=== PATIENT | male | born 1995 | race Caucasian/White ===

== ENCOUNTER 2022-06-06 00:20 | Observation (INO) ==
[2022-06-06] MEDS ORDERED: ONDANSETRON INJ 2 MG/ML 2 ML VIAL IV STA (00:36)
[2022-06-06] MEDS ORDERED: SODIUM CHLORIDE 0.9% 1000ML 1,000 ML IV SCH (00:45)
[2022-06-06 00:54] LABS: Basophils # (auto) 0.07 K/uL (0-0.2); Basophils % (auto) 0.3 %; Eosinophils # (auto) 0.03 K/uL (0-0.50); Eosinophils % (auto) 0.1 %; Hemoglobin 14.7 g/dl (14.0-18.0); Immature Granulocytes # (auto) 0.09 K/uL (0.00-0.02); Immature Granulocytes % (auto) 0.4 %; Lymphocytes # (auto) 2.22 K/uL (1.2-3.4); Lymphocytes % (auto) 10.8 %; Mean Corpuscular Hemoglobin 29.8 pg (25.0-34.0); Mean Platelet Volume 10.8 fL (9.4-12.4); Monocytes # (auto) 1.47 K/uL (0.24-0.82); Monocytes % (auto) 7.2 %; Neutrophils # (auto) 16.64 K/uL (1.4-6.5); Neutrophils % (auto) 81.2 %; Platelet Count 297 K/uL (130-400); RDW Coefficient of Variation 12.2 % (11.5-14.5); RDW Standard Deviation 37.3 fL (36.4-46.3); Red Blood Count 4.94 M/uL (4.63-6.08); White Blood Count 20.52 K/ul (4.8-10.8)
[2022-06-06 01:13] LABS: BUN Creatinine Ratio 17.6 (10-20); Creatinine Clr Calc Pharmacy 146.1 ml/min; Est GFR (African American) 145.5 ml/min; Est GFR (Non-African American) 125.5 ml/min; Potassium 3.7 mmol/L (3.5-5.1)
[2022-06-06] MEDS ORDERED: FAMOTIDINE 20MG IV PUSH 20 MG/5 ML SYR IV STA (01:16)
[2022-06-06] MEDS ORDERED: KETOROLAC TROMETHAMINE 15 MG/ML VIAL IV STA (01:17)
[2022-06-06 01:27] LABS: Albumin Globulin Ratio 1.6 (0.9-2); Albumin Level 4.5 gm/dl (3.4-5.0); Bilirubin,Total 0.9 mg/dl (0.2-1.0); Globulin 2.9 gm/dl (2.5-4.0); Total Protein 7.4 gm/dl (6.0-8.3)
[2022-06-06] MEDS ORDERED: SODIUM CHLORIDE 0.9% 1000ML 1,000 ML IV ONE (01:35)
--- NOTE | 2022-06-06 02:16 | Emergency Department Note ---
History of Present Illness General Chief complaint: Vomiting Stated complaint: VOMITING S/P MILE MARATHON Time Seen by Provider: 06/06/22 00:36 History of Present Illness Maximum Pain Intensity: 6 This 27-year-old male patient presents to the emergency department today for evaluation of body aches, weakness, nausea and vomiting. Patient states symptoms began this evening after drinking bourbon and beer. He did run a 26 mile marathon yesterday. He seemed to be doing okay, but this evening developed suddenly worsening pain, difficulty with his speech, intractable nausea and vomiting. He rates his pain a 6/10 and describes it as aching in all of his joints. He denies any specific abdominal pain. No chest pain or shortness of breath. No history of similar symptoms. This is his second marathon and he did not experience similar symptoms in the past. He feels that he is hydrating appropriately. Patient's family states he is very unsteady on his feet. Denies any trauma during the marathon. Home Medications Medication Instructions Recorded Confirmed Type No Known Home Medications 06/06/22 06/06/22 History Allergies Allergy/AdvReac Type Severity Reaction Status Date / Time No Known Allergies Allergy Mild Verified 06/06/22 01:15 Past Med/Surg History Medical History No pertinent past medical history Social History Smoking Status: Current some day smoker Hx Alcohol Use: No Hx Substance Use: No Beliefs That Will Affect Care: None Current Living Situation: Family Feels Safe at Home: Yes Review of Systems A total of 10 systems reviewed and were otherwise negative Physical Exam Vital Signs Vital Signs - 24 hr 06/06/22 00:29 06/06/22 01:04 06/06/22 01:31 Temperature 36.2 C L Temperature Source Temporal Artery Scan Pulse Rate 86 Pulse Rate [Right Finger] 88 Respiratory Rate 18 20 Blood Pressure 119/68 Blood Pressure [Right Arm] 128/72 Blood Pressure Mean 85 Blood Pressure Mean [Right Arm] 90 Pulse Oximetry 98 98 97 Oxygen Delivery Method Room Air Room Air Room Air Sepsis Recent Fever Within 48 Hours No Sepsis New/Unexplained Change in Mental Status No Sepsis Action Taken by Nursing No Action Required 06/06/22 02:45 Temperature Temperature Source Pulse Rate Pulse Rate [Right Finger] 100 H Respiratory Rate 20 Blood Pressure Blood Pressure [Right Arm] 112/63 Blood Pressure Mean Blood Pressure Mean [Right Arm] 79 Pulse Oximetry 98 Oxygen Delivery Method Sepsis Recent Fever Within 48 Hours Sepsis New/Unexplained Change in Mental Status Sepsis Action Taken by Nursing VITALS: Vitals are noted on the nurse's note and reviewed by myself. Vital signs stable. GENERAL: This is a 27-year-old white male, in no acute distress, nondiaphoretic, well-developed well-nourished. Patient is slow to respond, but appropriate. SKIN: The skin was without rashes, erythema, edema, or bruising. There is no tenting of the skin. Capillary refill less than 2 seconds. HEAD: Normocephalic atraumatic. EYES: Pupils equal round and reactive to light and accommodation. Conjunctivae without injection, sclerae without icterus. Extraocular movements intact. NOSE: Patent, turbinates without inflammation or discharge. No sinus tenderness. MOUTH: Mucous membranes moist. Tonsils are not enlarged. Pharynx without erythema or exudate. Uvula midline. Airway patent. Tongue does not deviate. NECK: Supple without nuchal rigidity. No lymphadenopathy. No thyromegaly. Cervical spine is nontender. No JVD. HEART: Regular rate and rhythm without murmurs gallops or rubs. LUNGS: Clear to auscultation bilaterally without wheezes, rales or rhonchi. No retractions or accessory muscle use. ABDOMEN: Positive bowel sounds x 4. Soft, nontender, without masses or organomegaly. Claire sign negative. No guarding or rebound tenderness. MUSCULOSKELETAL: No muscle atrophy, erythema, or edema noted. Full range of motion without joint tenderness in all extremities. No tenderness to palpation. Normal gait. Strength 5/5 throughout. NEURO: Patient was alert and oriented to person place and time. Normal sensation to light and sharp touch. Deep tendon reflexes 2+ throughout. No focal neurological deficits. Course Course The patient was seen and evaluated as above. An order was placed for continuous cardiac monitoring. The monitor shows a normal sinus rhythm at a rate of 96 bpm. IV access obtained, labs drawn. Patient hydrated with IV fluids, medicated with Toradol and Zofran. Labs reviewed by myself. Patient medicated with additional IV fluids. I discussed the findings with the patient at bedside. Recommended admission. The patient was agreeable. I discussed the case with my attending. I discussed case with the software developer manager. I discussed the case with Dr. Whatley, [facility] physician. He did agree to see and evaluate the patient for admission. Administered Medications Lactated Ringer's (Lr) 1,000 mls @ 200 mls/hr IV .Q5H ONE Stop: 06/06/22 07:48 Last Admin: 06/06/22 03:05 Dose: 200 mls/hr Documented By: CESAR Discontinued Medications Sodium Chloride (Nss 1000ml) 1,000 mls @ 999 mls/hr IV .Q1H1M NABILA Stop: 06/06/22 01:45 Last Infusion: 06/06/22 02:08 Dose: 0 mls/hr Documented By: Admin: 06/06/22 01:03 Dose: 999 mls/hr Documented By: CESAR Famotidine (Pepcid 20mg Iv Push) 20 mg in 5 mls @ 2.5 mls/min IV NOW STA Stop: 06/06/22 01:17 Last Admin: 06/06/22 01:19 Dose: Not Given Documented By: CESAR Sodium Chloride (Nss 1000ml) 1,000 mls @ 999 mls/hr IV .Q1H1M ONE Stop: 06/06/22 02:35 Last Infusion: 06/06/22 02:39 Dose: 0 mls/hr Documented By: Admin: 06/06/22 01:41 Dose: 999 mls/hr Documented By: CESAR Thiamine HCl 100 mg/ Syringe 10 mls @ 2 mls/min IV NOW ONE Stop: 06/06/22 03:04 Last Admin: 06/06/22 03:04 Dose: 2 mls/min Documented By: CESAR Ketorolac Tromethamine (Ketorolac Tromethamine 15 Mg/Ml Vial) 15 mg IV NOW STA Stop: 06/06/22 01:18 Last Admin: 06/06/22 01:31 Dose: 15 mg Documented By: CESAR Ondansetron HCl (Ondansetron Inj 2 Mg/Ml 2 Ml Vial) 4 mg IV NOW STA Stop: 06/06/22 00:37 Last Admin: 06/06/22 01:02 Dose: 4 mg Documented By: CESAR Medical Decision Making Differential Diagnosis Differential diagnosis includes rhabdomyolysis, metabolic abnormality, electrolyte abnormality, dehydration, alcohol abuse, cardiac abnormality, gastroenteritis, infection, among others Medical Records Attestation: I reviewed the patient's medical records. Home Medications Current Medication List: was personally reviewed by me Laboratory Data Attestation: I reviewed the patient's lab results. Leukocytosis of 20,000. No anemia or thrombocytopenia. ESR 9. Renal, hepatic function and electrolytes without significant abnormality. Total creatine kinase 2131. C-reactive protein elevated at 3.69. UA negative. All urine drug screen negative. Alcohol elevated at 260. Result diagrams: 06/06/22 00:25 06/06/22 00:25 Lab Results 06/06/22 06/06/22 06/06/22 Range/Units 00:25 00:25 00:25 WBC 20.52 H (4.8-10.8) K/ul RBC 4.94 (4.63-6.08) M/uL Hgb 14.7 (14.0-18.0) g/dl Hct 42.0 (40.1-51.0) % MCV 85.0 (80.0-100.0) fL MCH 29.8 (25.0-34.0) pg MCHC 35.0 (32.0-36.0) g/dL RDW Std Deviation 37.3 (36.4-46.3) fL RDW Coeff of Kasia 12.2 (11.5-14.5) % Plt Count 297 (130-400) K/uL MPV 10.8 (9.4-12.4) fL Immature Gran % (Auto) 0.4 % Neut % (Auto) 81.2 % Lymph % (Auto) 10.8 % [place] % (Auto) 7.2 % Eos % (Auto) 0.1 % Baso % (Auto) 0.3 % Neut # (Auto) 16.64 H (1.4-6.5) K/uL Lymph # (Auto) 2.22 (1.2-3.4) K/uL [place] # (Auto) 1.47 H (0.24-0.82) K/uL Eos # (Auto) 0.03 (0-0.50) K/uL Baso # (Auto) 0.07 (0-0.2) K/uL Immature Gran # (Auto) 0.09 H (0.00-0.02) K/uL ESR 9 (0-15) mm/hr Sodium 138 (136-145) mmol/L Potassium 3.7 (3.5-5.1) mmol/L Chloride 103 (98-107) mmol/L Carbon Dioxide 24 (21-32) mmol/L Anion Gap 11 (3-11) BUN 13 (6-23) mg/dl Creatinine 0.74 (0.6-1.4) mg/dl Est Cr Clr Drug Dosing 146.1 ml/min Est GFR ( Amer) 145.5 ml/min Est GFR (Non-Af Amer) 125.5 ml/min BUN/Creatinine Ratio 17.6 (10-20) Glucose 131 H (70-99(Fasting)) mg/dl Calcium 9.0 (8.5-10.1) mg/dl Total Bilirubin 0.9 (0.2-1.0) mg/dl AST 68 H (13-39) U/L ALT 30 (7-52) U/L Alkaline Phosphatase 72 (34-104) U/L Total Creatine Kinase 2131 H (30-223) U/L C-Reactive Protein (0-0.5) mg/dl Total Protein 7.4 (6.0-8.3) gm/dl Albumin 4.5 (3.4-5.0) gm/dl Globulin 2.9 (2.5-4.0) gm/dl Albumin/Globulin Ratio 1.6 (0.9-2) Lipase 9 L (11-82) U/L Urine Color Urine Appearance (Clear) Urine pH (4.5-7.5) Ur Specific [place] (1.000-1.030) Urine Protein (Negative) Urine Glucose (UA) (Negative) Urine Ketones (Negative) Urine Blood (Negative) Urine Nitrite (Negative) Urine Bilirubin (Negative) Urine Urobilinogen (Negative) Ur Leukocyte Esterase (Negative) Urine Opiates Screen (Neg) Ur Methadone, Qual (Neg) Urine Barbiturates (Neg) Ur Phencyclidine (PCP) (Neg) U Amphetamin/Meth Scrn (Neg) MDMA (Ecstasy) Screen (Neg) U Benzodiazepines Scrn (Neg) Ur Cocaine Metabolite (Neg) U Marijuana (THC) Screen (Neg) Ethyl Alcohol mg/dL (<10.0) mg/dl SARS-CoV-2, RNA, NAAT (NEGATIVE) 06/06/22 06/06/22 06/06/22 Range/Units 00:25 00:25 02:10 WBC (4.8-10.8) K/ul RBC (4.63-6.08) M/uL Hgb (14.0-18.0) g/dl Hct (40.1-51.0) % MCV (80.0-100.0) fL MCH (25.0-34.0) pg MCHC (32.0-36.0) g/dL RDW Std Deviation (36.4-46.3) fL RDW Coeff of Kasia (11.5-14.5) % Plt Count (130-400) K/uL MPV (9.4-12.4) fL Immature Gran % (Auto) % Neut % (Auto) % Lymph % (Auto) % [place] % (Auto) % Eos % (Auto) % Baso % (Auto) % Neut # (Auto) (1.4-6.5) K/uL Lymph # (Auto) (1.2-3.4) K/uL [place] # (Auto) (0.24-0.82) K/uL Eos # (Auto) (0-0.50) K/uL Baso # (Auto) (0-0.2) K/uL Immature Gran # (Auto) (0.00-0.02) K/uL ESR (0-15) mm/hr Sodium (136-145) mmol/L Potassium (3.5-5.1) mmol/L Chloride (98-107) mmol/L Carbon Dioxide (21-32) mmol/L Anion Gap (3-11) BUN (6-23) mg/dl Creatinine (0.6-1.4) mg/dl Est Cr Clr Drug Dosing ml/min Est GFR ( Amer) ml/min Est GFR (Non-Af Amer) ml/min BUN/Creatinine Ratio (10-20) Glucose (70-99(Fasting)) mg/dl Calcium (8.5-10.1) mg/dl Total Bilirubin (0.2-1.0) mg/dl AST (13-39) U/L ALT (7-52) U/L Alkaline Phosphatase (34-104) U/L Total Creatine Kinase (30-223) U/L C-Reactive Protein 3.69 H (0-0.5) mg/dl Total Protein (6.0-8.3) gm/dl Albumin (3.4-5.0) gm/dl Globulin (2.5-4.0) gm/dl Albumin/Globulin Ratio (0.9-2) Lipase (11-82) U/L Urine Color Urine Appearance (Clear) Urine pH (4.5-7.5) Ur Specific [place] (1.000-1.030) Urine Protein (Negative) Urine Glucose (UA) (Negative) Urine Ketones (Negative) Urine Blood (Negative) Urine Nitrite (Negative) Urine Bilirubin (Negative) Urine Urobilinogen (Negative) Ur Leukocyte Esterase (Negative) Urine Opiates Screen (Neg) Ur Methadone, Qual (Neg) Urine Barbiturates (Neg) Ur Phencyclidine (PCP) (Neg) U Amphetamin/Meth Scrn (Neg) MDMA (Ecstasy) Screen (Neg) U Benzodiazepines Scrn (Neg) Ur Cocaine Metabolite (Neg) U Marijuana (THC) Screen (Neg) Ethyl Alcohol mg/dL 258.2 H (<10.0) mg/dl SARS-CoV-2, RNA, NAAT NEGATIVE (NEGATIVE) 06/06/22 06/06/22 Range/Units 03:00 03:00 WBC (4.8-10.8) K/ul RBC (4.63-6.08) M/uL Hgb (14.0-18.0) g/dl Hct (40.1-51.0) % MCV (80.0-100.0) fL MCH (25.0-34.0) pg MCHC (32.0-36.0) g/dL RDW Std Deviation (36.4-46.3) fL RDW Coeff of Kasia (11.5-14.5) % Plt Count (130-400) K/uL MPV (9.4-12.4) fL Immature Gran % (Auto) % Neut % (Auto) % Lymph % (Auto) % [place] % (Auto) % Eos % (Auto) % Baso % (Auto) % Neut # (Auto) (1.4-6.5) K/uL Lymph # (Auto) (1.2-3.4) K/uL [place] # (Auto) (0.24-0.82) K/uL Eos # (Auto) (0-0.50) K/uL Baso # (Auto) (0-0.2) K/uL Immature Gran # (Auto) (0.00-0.02) K/uL ESR (0-15) mm/hr Sodium (136-145) mmol/L Potassium (3.5-5.1) mmol/L Chloride (98-107) mmol/L Carbon Dioxide (21-32) mmol/L Anion Gap (3-11) BUN (6-23) mg/dl Creatinine (0.6-1.4) mg/dl Est Cr Clr Drug Dosing ml/min Est GFR ( Amer) ml/min Est GFR (Non-Af Amer) ml/min BUN/Creatinine Ratio (10-20) Glucose (70-99(Fasting)) mg/dl Calcium (8.5-10.1) mg/dl Total Bilirubin (0.2-1.0) mg/dl AST (13-39) U/L ALT (7-52) U/L Alkaline Phosphatase (34-104) U/L Total Creatine Kinase (30-223) U/L C-Reactive Protein (0-0.5) mg/dl Total Protein (6.0-8.3) gm/dl Albumin (3.4-5.0) gm/dl Globulin (2.5-4.0) gm/dl Albumin/Globulin Ratio (0.9-2) Lipase (11-82) U/L Urine Color Yellow Urine Appearance Clear (Clear) Urine pH 6.0 (4.5-7.5) Ur Specific [place] 1.009 (1.000-1.030) Urine Protein Negative (Negative) Urine Glucose (UA) Negative (Negative) Urine Ketones Negative (Negative) Urine Blood Negative (Negative) Urine Nitrite Negative (Negative) Urine Bilirubin Negative (Negative) Urine Urobilinogen Negative (Negative) Ur Leukocyte Esterase Negative (Negative) Urine Opiates Screen Neg (Neg) Ur Methadone, Qual Neg (Neg) Urine Barbiturates Neg (Neg) Ur Phencyclidine (PCP) Neg (Neg) U Amphetamin/Meth Scrn Neg (Neg) MDMA (Ecstasy) Screen Neg (Neg) U Benzodiazepines Scrn Neg (Neg) Ur Cocaine Metabolite Neg (Neg) U Marijuana (THC) Screen Neg (Neg) Ethyl Alcohol mg/dL (<10.0) mg/dl SARS-CoV-2, RNA, NAAT (NEGATIVE) Blood Pressure Blood Pressure Findings: Normal blood pressure MDM Narrative This 27-year-old male patient presents to the emergency department today for evaluation of severe muscle pain, fatigue, and nausea and vomiting. The patient did run a marathon yesterday. Patient was drinking alcohol this evening prior to the onset of symptoms. Work-up here in the ED concerning for elevated CK. Alcohol elevated at 260. Concerning for traumatic rhabdomyolysis. The patient was hydrated with IV fluids medicated with analgesics. He will be admitted to the hospitalist service. Please see hospitalist dictation regarding ongoing management care of this patient. The chart was completed utilizing [employer] Speech voice recognition software. Grammatical errors, random word insertions, pronoun errors, and incomplete sentences are an occasional consequence of this system due to software limitations, ambient noise, and hardware issues. Any formal questions or concerns about the content, text, or information contained within the body of this dictation should be directly addressed to the provider for clarification. Impression & Plan Traumatic rhabdomyolysis, Alcohol use, Generalized body aches Discharge Plan Visit Data Chief Complaint: Vomiting Stated Complaint: VOMITING S/P 26MILE OCTATHON ED Provider: Ashwin Cárdenas ED Midlevel Provider: Ana Luisa Vang Discharge Problem: Traumatic rhabdomyolysis, Alcohol use, Generalized body aches Patient Disposition: Admitted As Inpatient Discharge Instructions Interventions: ED Discharge Assessment Last Done: 06/06/22 04:21
[2022-06-06] MEDS ORDERED: LACTATED RINGER'S 1,000 ML IV ONE (02:49)
[2022-06-06] MEDS ORDERED: THIAMINE HCL 100 MG in SYRINGE 9 ML IV ONE (03:00)
[2022-06-06 03:11] LABS: Appearance Urine Clear (Clear); Bilirubin Urine Negative (Negative); Blood Urine Negative (Negative); Color Urine Yellow; Glucose Urine UA Negative (Negative); Ketones Urine Negative (Negative); Leukocyte Esterase Urine Negative (Negative); Nitrite Urine Negative (Negative); Protein Urine Negative (Negative); Specific Gravity Urine 1.009 (1.000-1.030); Urobilinogen Urine Negative (Negative)
--- NOTE | 2022-06-06 03:17 | History & Physical Report ---
Date of Service June 06, 2022 Assessment & Plan (1) Traumatic rhabdomyolysis: Plan: Recent marathon participation Hyperglycemia rule out DM GMF Monitor CPK response to IVF Check hemoglobin A1c DVT prophylaxis. Lovenox subcu Full code Text document was generated using [employer] voice recognition software. It may contain grammatical or spelling errors. Kindly contact undersigned for clarification of any documentation item in question. History of Present Illness Chief Complaint: Nausea vomiting muscle aches Primary Care Provider: Martin Boyle DO History obtained from patient, family, and records. Medical history significant for anxiety disorder, GERD, IBS. Patient ran a 26 mile marathon yesterday. Stiff muscles after the run. Patient was drinking with his buddies last night at a birthday celebration when he experience nausea, vomiting symptoms. No actual abdominal pain. No chest pain, no shortness of breath. Patient brought by family to the ER for evaluation. 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 Allergies Allergy/AdvReac Type Severity Reaction Status Date / Time No Known Allergies Allergy Mild Verified 06/06/22 01:15 Home Medications Medication Instructions Recorded Confirmed Type No Known Home Medications 06/06/22 06/06/22 History Past Med/Surg History Medical History No pertinent past medical history Social History Smoking Status: Never smoker Feels Safe at Home: Yes Review of Systems Review of Systems: As per HPI, all other systems reviewed and negative Physical Exam Physical Exam: GENERAL: Comfortable, pleasant, no respiratory distress SKIN: Normal color, warm HEENT: [place] palpebral conjunctivae, no ptosis, dry buccal mucosa NECK : Supple, no tenderness CHEST : CTA, no tenderness HEART : RRR, no obvious murmurs ABDOMEN: Some distention, nontender EXTREMITIES : No LE swelling minimal LE tenderness, no other conspicuous deformities noted NEUROLOGIC : Coherent, no facial asymmetry, no other gross focality Results & Data Results & Data ([facility]) Vital Signs (Past 12 Hours) Vital Signs Temp Pulse Pulse Resp BP BP Pulse Ox 06/06/22 02:45 100 H 20 112/63 98 10/10/22 01:31 88 20 128/72 97 06/06/22 01:04 98 06/06/22 00:29 36.2 C L 86 18 119/68 98 O2 Del Method 06/06/22 02:45 06/06/22 01:31 Room Air 06/06/22 01:04 Room Air 06/06/22 00:29 Room Air Laboratory Results Laboratory Results WBC 20.52 K/ul (4.8-10.8) H 06/06/22 00:25 RBC 4.94 M/uL (4.63-6.08) 06/06/22 00:25 Hgb 14.7 g/dl (14.0-18.0) 06/06/22 00:25 Hct 42.0 % (40.1-51.0) 06/06/22 00:25 MCV 85.0 fL (80.0-100.0) 06/06/22 00:25 MCH 29.8 pg (25.0-34.0) 06/06/22 00:25 MCHC 35.0 g/dL (32.0-36.0) 06/06/22 00:25 RDW Std Deviation 37.3 fL (36.4-46.3) 06/06/22 00:25 RDW Coeff of Kasia 12.2 % (11.5-14.5) 06/06/22 00:25 Plt Count 297 K/uL (130-400) 06/06/22 00:25 MPV 10.8 fL (9.4-12.4) 06/06/22 00:25 Immature Gran % (Auto) 0.4 % 06/06/22 00:25 Neut % (Auto) 81.2 % 06/06/22 00:25 Lymph % (Auto) 10.8 % 06/06/22 00:25 [place] % (Auto) 7.2 % 06/06/22 00:25 Eos % (Auto) 0.1 % 06/06/22 00:25 Baso % (Auto) 0.3 % 06/06/22 00:25 Neut # (Auto) 16.64 K/uL (1.4-6.5) H 06/06/22 00:25 Lymph # (Auto) 2.22 K/uL (1.2-3.4) 06/06/22 00:25 [place] # (Auto) 1.47 K/uL (0.24-0.82) H 06/06/22 00:25 Eos # (Auto) 0.03 K/uL (0-0.50) 06/06/22 00:25 Baso # (Auto) 0.07 K/uL (0-0.2) 06/06/22 00:25 Immature Gran # (Auto) 0.09 K/uL (0.00-0.02) H 06/06/22 00:25 ESR 9 mm/hr (0-15) 06/06/22 00:25 Sodium 138 mmol/L (136-145) 06/06/22 00:25 Potassium 3.7 mmol/L (3.5-5.1) 06/06/22 00:25 Chloride 103 mmol/L (98-107) 06/06/22 00:25 Carbon Dioxide 24 mmol/L (21-32) 06/06/22 00:25 Anion Gap 11 (3-11) 06/06/22 00:25 BUN 13 mg/dl (6-23) 06/06/22 00:25 Creatinine 0.74 mg/dl (0.6-1.4) 06/06/22 00:25 Est Cr Clr Drug Dosing 146.1 ml/min 06/06/22 00:25 Est GFR ( Amer) 145.5 ml/min 06/06/22 00:25 Est GFR (Non-Af Amer) 125.5 ml/min 06/06/22 00:25 BUN/Creatinine Ratio 17.6 (10-20) 06/06/22 00:25 Glucose 131 mg/dl (70-99(Fasting)) H 06/06/22 00:25 Calcium 9.0 mg/dl (8.5-10.1) 06/06/22 00:25 Total Bilirubin 0.9 mg/dl (0.2-1.0) 06/06/22 00:25 AST 68 U/L (13-39) H 06/06/22 00:25 ALT 30 U/L (7-52) 06/06/22 00:25 Alkaline Phosphatase 72 U/L (34-104) 06/06/22 00:25 Total Creatine Kinase 2131 U/L (30-223) H 06/06/22 00:25 C-Reactive Protein 3.69 mg/dl (0-0.5) H 06/06/22 00:25 Total Protein 7.4 gm/dl (6.0-8.3) 06/06/22 00:25 Albumin 4.5 gm/dl (3.4-5.0) 06/06/22 00:25 Globulin 2.9 gm/dl (2.5-4.0) 06/06/22 00:25 Albumin/Globulin Ratio 1.6 (0.9-2) 06/06/22 00:25 Lipase 9 U/L (11-82) L 06/06/22 00:25 Urine Color Yellow 06/06/22 03:00 Urine Appearance Clear (Clear) 06/06/22 03:00 Urine pH 6.0 (4.5-7.5) 06/06/22 03:00 Ur Specific [place] 1.009 (1.000-1.030) 06/06/22 03:00 Urine Protein Negative (Negative) 06/06/22 03:00 Urine Glucose (UA) Negative (Negative) 06/06/22 03:00 Urine Ketones Negative (Negative) 06/06/22 03:00 Urine Blood Negative (Negative) 06/06/22 03:00 Urine Nitrite Negative (Negative) 06/06/22 03:00 Urine Bilirubin Negative (Negative) 06/06/22 03:00 Urine Urobilinogen Negative (Negative) 06/06/22 03:00 Ur Leukocyte Esterase Negative (Negative) 06/06/22 03:00 Ethyl Alcohol mg/dL 258.2 mg/dl (<10.0) H 06/06/22 00:25 SARS-CoV-2, RNA, NAAT NEGATIVE (NEGATIVE) 06/06/22 02:10
[2022-06-06] MEDS ORDERED: ACETAMINOPHEN 325 MG TAB PO PRN (03:20)
[2022-06-06] MEDS ORDERED: KETOROLAC TROMETHAMINE 15 MG/ML VIAL IV PRN (03:20)
[2022-06-06] MEDS ORDERED: oxyCODONE HCL IR 5 MG TAB (IMMEDIATE RELEASE) PO PRN (03:20)
[2022-06-06] MEDS ORDERED: LORazepam 0.5 MG TAB PO PRN (03:20)
[2022-06-06] MEDS ORDERED: PROMETHAZINE HCL 12.5 MG in SODIUM CHLORIDE 0.9% 50 ML IV PRN (03:20)
[2022-06-06 03:42] LABS: Amphetamines+Metham, Urine Neg (Neg); Barbiturates, Urine Neg (Neg); Benzodiazepine, Urine Neg (Neg); Cocaine, Urine Neg (Neg); MDMA (Ecstacy), Urine Neg (Neg); Methadone, Urine Neg (Neg); Opiate, Urine Neg (Neg); Phencyclidine, Urine Neg (Neg)
[2022-06-06] MEDS: ENOXAPARIN INJ 40 MG/0.4 ML SYR SQ SCH (08:24)
[2022-06-06] MEDS: LACTATED RINGER'S 1,000 ML IV SCH ×3 (09:49→19:41)
--- NOTE | 2022-06-06 15:24 | Communication Note ---
Date of Service: June 06, 2022 27-year-old male with PMH of anxiety disorder, GERD, IBS who ran 26 mile marathon the day prior to arrival came in with history of muscle 06/06 to our ED . Of note, patient was drinking with his buddies last night prior to arrival at a birthday celebration when he experienced nausea, vomiting symptoms. Patient reports drinking 2-3 drinks 2-3 times a week, patient denies any symptoms of withdrawal in the past even when he has not drank any alcohol for weeks. He was seen and examined at bedside as a follow-up of rhabdomyolysis, his CPK is trending down, patient is now resolved with regard to nausea and vomiting, advance diet as tolerated, continue with IV fluid, we can decrease the rate as patient starts to eat and drink at full scale. We will monitor CPK in a.m. Patient reports some soreness in his upper back. Leukocytosis, likely secondary to acute stress, Pro-Gerard negative, will monitor labs tomorrow. On examination, patient on room air, NAD, heart, lungs, abdomen examination WNL. If CPK continues to trend down, likely DC tomorrow unless no new issues arises. For detailed information, refer to today's H&P note.
--- NOTE | 2022-06-06 15:33 | Electrocardiogram Report ---
Test Reason : Blood Pressure : / mmHG Vent. Rate : 086 BPM Atrial Rate : 086 BPM P-R Int : 182 ms QRS Dur : 080 ms QT Int : 380 ms P-R-T Axes : 016 051 038 degrees QTc Int : 454 ms Poor data quality, interpretation may be adversely affected Normal sinus rhythm Normal ECG No previous ECGs available Confirmed by Silas Wright ([id number]) on 06/06/2022 3:33:29 PM Referred By: REFERRED SELF Confirmed By:Silas Wright
[2022-06-07] MEDS: LACTATED RINGER'S 1,000 ML IV SCH ×2 (00:38→06:12)
[2022-06-07] MEDS ORDERED: OPTIRAY 300 500mL IV ONE (01:17)
[2022-06-07] MEDS ORDERED: MAGNESIUM SULFATE / D5W 1 GM/100 ML BAG IV ONE (01:23)
[2022-06-07 02:21] LABS: Basophils # (auto) 0.04 K/uL (0-0.2); Basophils % (auto) 0.3 %; Eosinophils # (auto) 0.12 K/uL (0-0.50); Eosinophils % (auto) 0.9 %; Hematocrit (blood only) 39.5 % (40.1-51.0); Hemoglobin 13.6 g/dl (14.0-18.0); Immature Granulocytes # (auto) 0.06 K/uL (0.00-0.02); Immature Granulocytes % (auto) 0.4 %; Lymphocytes # (auto) 1.87 K/uL (1.2-3.4); Lymphocytes % (auto) 13.6 %; Mean Corpuscular Hgb Conc 34.4 g/dL (32.0-36.0); Mean Platelet Volume 10.4 fL (9.4-12.4); Monocytes # (auto) 1.39 K/uL (0.24-0.82); Monocytes % (auto) 10.1 %; Neutrophils % (auto) 74.7 %; Platelet Count 253 K/uL (130-400); RDW Coefficient of Variation 12.6 % (11.5-14.5); RDW Standard Deviation 40.3 fL (36.4-46.3); Red Blood Count 4.54 M/uL (4.63-6.08); White Blood Count 13.78 K/ul (4.8-10.8)
[2022-06-07 02:40] LABS: Partial Thromboplastin Ratio 1.1; Partial Thromboplastin Time 29.6 Seconds (21.0-31.0)
[2022-06-07 02:54] LABS: Albumin Globulin Ratio 1.5 (0.9-2); Albumin Level 3.9 gm/dl (3.4-5.0); BUN Creatinine Ratio 13.6 (10-20); Bilirubin,Total 1.5 mg/dl (0.2-1.0); Calcium 8.9 mg/dl (8.5-10.1); Creatinine Clr Calc Pharmacy 122.5 ml/min; Est GFR (African American) 140.2 ml/min; Est GFR (Non-African American) 120.9 ml/min; Globulin 2.6 gm/dl (2.5-4.0); Magnesium 1.8 mg/dl (1.7-2.4); Phosphorus 2.4 mg/dl (2.5-4.9); Potassium 3.8 mmol/L (3.5-5.1); Total Protein 6.5 gm/dl (6.0-8.3)
--- NOTE | 2022-06-07 07:26 | CT Scan Report ---
CT angio chest PE protocol CT DOSE: 396.33 mGy.cm HISTORY: 27 years-old Male with cp. Acute midsternal chest pain TECHNIQUE: Multiple CTA images of the chest were obtained after the intravenous administration of 115 ml Optiray. Coronal and sagittal MIPS were obtained from the axial data set and were submitted for review. All measurements were obtained according to NASCET criteria. A dose lowering technique was u tilized adhering to the principles of ALARA. COMPARISON: None. FINDINGS: CTA: There is adequate opacification of the pulmonary arteries to the level of the subsegmental branches w ithout convincing evidence of acute pulmonary embolism. Normal thoracic aorta.Heart size is normal. CT CHEST: No dominant thyroid nodule is seen. No pathologically adenopathy by CT size criteria. Subcentimeter a xillary chain lymph nodes measure up to 9 mm. Residual thymic tissue of the anterior mediastinum. The re is no pneumothorax, pleural effusion or focal airspace consolidation. Likely benign 3 mm solid nod ule of the superior segment right lower lobe on image 181. The imaged upper abdominal structures are normal. The osseous structures appear intact. IMPRESSION: Unremarkable CTA of the chest. No pulmonary emboli identified. ACT 112: Negative or not required by law. The above report was generated using voice recognition software. It may contain grammatical, syntax o r spelling errors. Electronically signed by: Torsten Johnson M.D. 06/07/2022 7:24 AM
[2022-06-07] MEDS: ENOXAPARIN INJ 40 MG/0.4 ML SYR SQ SCH (07:47)
--- NOTE | 2022-06-07 11:37 | Discharge Summary ---
Discharge Summary Date of Service June 07, 2022 Notes For Next Care Provider Patient will need PCP follow-up in a week time and likely blood test CPK/CBC/CMP/magnesium level. Medication Changes From Visit None. Admission HPI Per Admitting Provider History obtained from patient, family, and records. Medical history significant for anxiety disorder, GERD, IBS. Patient ran a 26 mile marathon yesterday. Stiff muscles after the run. Patient was drinking with his buddies last night at a birthday celebration when he experience nausea, vomiting symptoms. No actual abdominal pain. No chest pain, no shortness of breath. Patient brought by family to the ER for evaluation. 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 Admission Exam Per Admitting Provider GENERAL: Comfortable, pleasant, no respiratory distress SKIN: Normal color, warm HEENT: [address] palpebral conjunctivae, no ptosis, dry buccal mucosa NECK : Supple, no tenderness CHEST : CTA, no tenderness HEART : RRR, no obvious murmurs ABDOMEN: Some distention, nontender EXTREMITIES : No LE swelling minimal LE tenderness, no other conspicuous deformities noted NEUROLOGIC : Coherent, no facial asymmetry, no other gross focality Principal Dx & Hospital Course #1 = Principal Diagnosis (1) Traumatic rhabdomyolysis: (2) Alcohol use: Plan 27-year-old male with PMH of anxiety disorder, GERD, IBS who ran 26 mile marathon the day prior to arrival came in with history of muscle 10/ to our ED. Of note, patient was drinking with his buddies last night prior to arrival at a birthday celebration when he experienced nausea, vomiting symptoms. Patient reports drinking 2-3 drinks 2-3 times a week, patient denies any symptoms of withdrawal in the past even when he has not drank any alcohol for weeks. Discussed about risk of binge drinking with patient. Patient seemed acceptable and voiced understanding. He was seen and examined at bedside as a follow-up of rhabdomyolysis, his CPK is trending down, denies any muscle pain, resolution of nausea and vomiting with tolerance of diet. Patient to maintain adequate hydration upon discharge up to 2- 3 L a day, more so on the higher side for a week. Patient will need blood test CPK/CBC/CMP/magnesium level in a week time with PCP linsey in a week time. Leukocytosis, likely secondary to acute stress, Pro-Gerard negative, WBC trended down. Patient with no signs of infection including headache or cough or pain or burning with passing urine or abdominal pain. No open wound anywhere in the body. Patient being discharged home with following instruction at the point of discharge: Follow-up with your primary care physician within a week time and you will likely need CPK/CBC/CMP/magnesium level ordered. Maintain adequate hydration of 2 to 3 L/day, more so on the higher side for a week. Discharge Exam GENERAL: Alert and oriented x3. NAD, on RA. HEENT: No pallor, no icterus. Pupils equal, round and reactive to light. Oral mucosa moist. NECK: No JVD, no neck masses. HEART: S1 and S2 heard. Regular rate and rhythm. No murmur, no gallop. RESPIRATORY SYSTEM: Normal AP diameter. No accessory muscle use. No wheezing, no crackles. ABDOMEN: Soft, bowel sounds present, nontender, no distention. CENTRAL NERVOUS SYSTEM: No facial droop. Speech is clear. Obeys simple c ommands. Moves extremities. EXTREMITIES: No edema, no erythema seen. Updated Medication List Medication Instructions Recorded Confirmed Type No Known Home Medications 06/06/22 06/06/22 History Hospital Stay Data Consultations 06/06/22 02:49 ED Decision to Admit Stat Diagnostic Imagining Performed 06/07/22 00:44 CT angio chest PE protocol Urgent Pending Results Patient Have Any Pending Studies at Discharge: No Discharge Instructions Given to Patient (Per Discharging Provider) Follow-up with your primary care physician within a week time and you will likely need CPK/CBC/CMP/magnesium level ordered. Maintain adequate hydration of 2 to 3 L/day, more so on the higher side for a week. Total Time Total Time Spent Total Time Spent (In Minutes): 35
[2022-06-07] MEDS ORDERED: POT PHOSPHATE MONOBASIC W/ SOD TAB PO SCH (13:00)
== END 2022-06-07 13:08 | disposition home or self-care (01) ==
LOC: ED 00:20 → INTOOBSV 03:18 → 3W 03:18
DX: D72.829 Elevated white blood cell count, unspecified; T79.6XXA Traumatic ischemia of muscle, initial encounter; F10.90 Alcohol use, unspecified, uncomplicated; F17.210 Nicotine dependence, cigarettes, uncomplicated